=== PATIENT | male | born 1935 | race Caucasian/White ===

== ENCOUNTER 2018-09-03 14:15 | Emergency (ER) | payer MEDICARE, BC ==
[2018-09-03] MEDS ORDERED: Acetaminophen 325 MG Tab PO ONE (14:42)
--- NOTE | 2018-09-03 15:36 | EDM.PDOC ---
ED HPI GENERAL MEDICAL PROBLEM - General Chief Complaint: Upper Extremity Injury/Pain Stated Complaint: LT ARM INJURY Time Seen by Provider: 09/03/18 14:20 Source of Information: Reports: Patient, RN Notes Reviewed - History of Present Illness INITIAL COMMENTS - FREE TEXT/NARRATIVE: 83-year-old male fell after losing his balance against his car suffering injury to his left arm. We the pain did seem to be more in the upper arm area up toward the shoulder but now he states the pain is more left proximal forearm. He did have some mild chest wall discomfort but that is now better. No head neck or back injury. No difficulty breathing. Left Upper Arm Pain Score (Numeric/FACES): 8 - Related Data Allergies Allergy/AdvReac Type Severity Reaction Status Date / Time ciprofloxacin Allergy Cannot Verified 01/05/16 02:48 Remember Home Meds: Home Meds Acetaminophen/HYDROcodone [Dana 325-5 MG] 1 tab PO Q6H PRN #14 tablet 09/03/18 [Rx] Allopurinol [Zyloprim] 300 mg PO DAILY 09/03/18 [History] Aspirin [Halfprin] 81 mg PO DAILY 09/03/18 [History] FA/Lycopene/Lut/MV,Ca,Iron,Min [Centrum] 1 tab PO DAILY 09/03/18 [History] Fluticasone Propionate [Flonase Allergy Relief] 1 spray INH DAILY 09/03/18 [ History] Levothyroxine 125 mcg PO DAILY 09/03/18 [History] Lisinopril 20 mg PO DAILY 09/03/18 [History] Lutein/Minerals/Vit A,C & E [Ocuvite] 1 tab PO DAILY 09/03/18 [History] Umeclidinium Brm/Vilanterol Tr [Anoro Ellipta 62.5-25 MCG] 1 puff INH DAILY [History] metFORMIN [Glucophage XR] 500 mg PO BID 09/03/18 [History] Past Medical History Cardiovascular History: Reports: Hypertension Respiratory History: Reports: Other (See Below) Other Respiratory History: sarcardosis of the lungs Musculoskeletal History: Reports: Gout Endocrine/Metabolic History: Reports: Diabetes, Type II, Hypothyroidism - Past Surgical History GI Surgical History: Reports: Cholecystectomy Social & Family History - Tobacco Use Smoking Status *Q: Former Smoker Years of Tobacco use: 10 Used Tobacco, but Quit: Yes Month/Year Tobacco Last Used: 56 yr - Caffeine Use Caffeine Use: Reports: Coffee, Soda - Recreational Drug Use Recreational Drug Use: No Review of Systems - Review of Systems Review Of Systems: See Below Respiratory: Reports: Pleuritic Chest Pain. Denies: Shortness of Breath Cardiovascular: Reports: Chest Pain (Mild, gone on) GI/Abdominal: Denies: Abdominal Pain, Nausea, Vomiting Musculoskeletal: Reports: Arm Pain Skin: Reports: No Symptoms (Left proximal forearm, left upper arm) Neurological: Denies: Numbness, Tingling, Weakness ED EXAM, GENERAL - Physical Exam Exam: See Below General Appearance: Alert, Moderate Distress Head: Atraumatic Neck: Supple Respiratory/Chest: No Respiratory Distress, Lungs Clear, Normal Breath Sounds Cardiovascular: Regular Rate, Rhythm GI/Abdominal: Soft, Non-Tender Extremities: Arm Pain (Mild tenderness left upper arm, no visible swelling or deformity, left shoulder and left clavicle both nontender, moderate tenderness proximal left forearm, no visible deformity, elbow nontender, wrist and hand nontender without swelling or deformity) Neurological: Alert, Oriented, No Motor/Sensory Deficits Skin Exam: Warm, Dry, Normal Color ED TRAUMA EXTREMITY PROCEDURES - Splinting Left Upper Extremity Splint Site: long arm LUE Pre-Procedure NV Status: Normal Post-Procedure NV Status: Normal Splint Material: Fiberglass Splint Design: Posterior Applied & Form Fitted By: Provider Provider Post-Splint Application NV Check: NV Status Normal Course - Vital Signs Last Recorded V/S: Last Vital Signs Temp 97.6 F 09/03/18 16:10 Pulse 76 09/03/18 16:10 Resp 16 09/03/18 16:10 BP 115/56 L 09/03/18 16:10 Pulse Ox 93 L 09/03/18 16:10 - Orders/Labs/Meds Orders: Active Orders 24 hr Category Date Time Status Forearm 2V Lt [CR] Stat Exams 09/03/18 14:43 Taken Humerus Lt [CR] Stat Exams 09/03/18 14:44 Taken Durable Medical Equipment for Discharge [DME for Oth 09/03/18 15:33 Ordered Discharge] [COMM] Stat Meds: Medications Discontinued Medications Generic Name Dose Route Start Last Admin Trade Name Freq PRN Reason Stop Dose Admin Acetaminophen 975 mg 09/03/18 14:42 09/03/18 15:17 Tylenol PO 09/03/18 14:43 975 mg NOW ONE Administration - Re-Assessments/Exams Free Text/Narrative Re-Assessment/Exam: 09/03/18 18:09 X rays of humerus no fx, forearm fx of proximal radius, nodisplaced. have splinted with orthoglass, that has helped a pain, discharge instr. as documented. Departure - Departure Time of Disposition: 15:33 Disposition: Home, Self-Care 01 Clinical Impression: Fall Qualifiers: Encounter type: initial encounter Qualified Code(s): W19.XXXA - Unspecified fall, initial encounter Fracture, radius, proximal Qualifiers: Encounter type: initial encounter Fracture type: closed Fracture morphology: unspecified fracture morphology Laterality: left Qualified Code(s): S52.102A - Unspecified fracture of upper end of left radius, initial encounter for closed fracture - Discharge Information Prescriptions: Acetaminophen/HYDROcodone [Dana 325-5 MG] 1 tab PO Q6H PRN #14 tablet PRN Reason: Pain Instructions: Radial Fracture Rehab-SportsMed Referrals: Nickolas Panchal MD [Primary Care Provider] - Forms: ED Department Discharge Additional Instructions: Fiberglas splint, keep dry, arm sling as needed for comfort, Tylenol 2-3 times daily as needed for discomfort or hydrocodone if needed for more severe pain. Do not take Tylenol and hydrocodone at the same time, do not drive when taking hydrocodone. Follow-up with Dr. Negron, Orthopedist in about 5-6 days, call [phone] for appointment. - My Orders Last 24 Hours: My Active Orders 09/03/18 14:43 Forearm 2V Lt [CR] Stat 09/03/18 14:44 Humerus Lt [CR] Stat 09/03/18 15:33 Durable Medical Equipment for Discharge [DME for Discharge] [COMM] Stat - Assessment/Plan Last 24 Hours: My Active Orders 09/03/18 14:43 Forearm 2V Lt [CR] Stat 09/03/18 14:44 Humerus Lt [CR] Stat 09/03/18 15:33 Durable Medical Equipment for Discharge [DME for Discharge] [COMM] Stat
[2018-09-03 16:47] VITALS: BP 115/56
--- NOTE | 2018-09-06 10:17 | CR ---
Left humerus: Two views of the left humerus were obtained. Comparison: No prior humerus study. Radial neck fracture is again noted. Mild degenerative spurring is noted within the glenohumeral joint. Osteopenia is present. No additional fracture or other bony abnormality is appreciated. Impression: 1. Radial neck fracture and mild degenerative change as noted above. 2. Nothing acute is seen within the left humerus. Diagnostic code #3
--- NOTE | 2018-09-06 10:17 | CR ---
Left forearm: Two views of the left forearm were obtained. Comparison: No prior forearm study. Fracture is identified within the radial neck. Bony structures are osteoporotic. No additional abnormality is definitely appreciated. Impression: 1. Radial neck fracture. Osteoporosis. Diagnostic code #3
== END 2018-09-03 16:30 | disposition home or self-care (01) ==
LOC: JD.ED 14:15
DX: S52.132A Displaced fracture of neck of left radius, initial encounter for closed fracture (principal); I10 Essential (primary) hypertension; E11.9 Type 2 diabetes mellitus without complications; M10.9 Gout, unspecified; E03.9 Hypothyroidism, unspecified; Z79.84 Long term (current) use of oral hypoglycemic drugs; Z90.49 Acquired absence of other specified parts of digestive tract; Z88.1 Allergy status to other antibiotic agents; Z79.82 Long term (current) use of aspirin; Z79.899 Other long term (current) drug therapy; Z87.891 Personal history of nicotine dependence; W19.XXXA Unspecified fall, initial encounter
CPT/HCPCS: 29105; 73060; 73090; 99283; A9270

== ENCOUNTER 2019-05-21 11:41 | Emergency (ER) | payer MEDICARE, BC ==
[2019-05-21] MEDS ORDERED: Acetaminophen/HYDROcodone 325-5 MG Tab PO STA ×2 (12:30→14:53)
--- NOTE | 2019-05-21 12:38 | EDM.PDOC ---
ED HPI GENERAL MEDICAL PROBLEM - General Chief Complaint: Upper Extremity Injury/Pain Stated Complaint: [facility] Time Seen by Provider: 05/21/19 11:57 Source of Information: Reports: Patient, Family (, daughter) History Limitations: Reports: No Limitations - History of Present Illness INITIAL COMMENTS - FREE TEXT/NARRATIVE: Mr. Tom is a very pleasant 83-year-old man who tells me that he tripped over a vacuum tuckpointer cleaner caulker cord around 9:30 to 10:00 this morning, falling. He struck his forehead on the carpet when he landed, and injured his upper right arm. He is also complaining of pain across his lower ribs, bilaterally. He is otherwise uninjured. His states that he was not knocked unconscious when he fell, and that his current mental status is his normal (he is somewhat forgetful and not the best historian). The patient was given Dilaudid 0.5 mg en route to the ED. The patient's PCP is Dr. Jesus Panchal. He received an influenza vaccine this season. Right Shoulder Pain Score (Numeric/FACES): 6 - Related Data Allergies Allergy/AdvReac Type Severity Reaction Status Date / Time ciprofloxacin Allergy Cannot Verified 05/21/19 11:48 Remember Home Meds: Home Meds Acetaminophen/HYDROcodone [Opolis 325-5 MG] 1 tab PO Q6H PRN #14 tablet 09/03/18 [Rx] Levothyroxine 125 mcg PO DAILY 09/03/18 [History] Lisinopril 10 mg PO DAILY 09/03/18 [History] Umeclidinium Brm/Vilanterol Tr [Anoro Ellipta 62.5-25 MCG] 1 puff INH DAILY [History] allopurinoL [Zyloprim] 300 mg PO DAILY 09/03/18 [History] metFORMIN [Glucophage XR] 500 mg PO BID 09/03/18 [History] Acetaminophen/HYDROcodone [Opolis 325-5 MG] 1 - 2 tab PO Q6H PRN #30 tablet 05/21 [Rx] Furosemide [Lasix] 40 mg PO DAILY 05/21/19 [History] atorvaSTATin [Lipitor] 10 mg PO BEDTIME 05/21/19 [History] Past Medical History Cardiovascular History: Reports: Hypertension Respiratory History: Reports: Other (See Below) Other Respiratory History: sarcardosis of the lungs Musculoskeletal History: Reports: Gout Endocrine/Metabolic History: Reports: Diabetes, Type II, Hypothyroidism - Past Surgical History GI Surgical History: Reports: Cholecystectomy Social & Family History - Tobacco Use Smoking Status *Q: Never Smoker - Caffeine Use Caffeine Use: Reports: Coffee, Soda - Recreational Drug Use Drug Use in Last 12 Months: No ED ROS GENERAL - Review of Systems Review Of Systems: Comprehensive ROS is negative, except as noted in HPI. ED EXAM, GENERAL - Physical Exam Exam: See Below Exam Limited By: No Limitations General Appearance: Alert, WD/WN, No Apparent Distress Eye Exam: Bilateral Eye: EOMI, Normal Inspection (s/p cataract surgery), PERRL Ears: Normal External Exam, Normal Canal, Normal TMs, Hearing Loss Nose: Normal Inspection, Normal Mucosa, No Blood Throat/Mouth: Normal Inspection, Normal Lips, Normal Teeth, Normal Gums, Normal Oropharynx, Normal Voice, No Airway Compromise Head: Normocephalic, Other (Approx 4 cm diameter area of swelling with a minor abrasion and no visible ecchymosis, on the forehead, just right of midline) Neck: Normal Inspection, Supple, Non-Tender, Full Range of Motion Respiratory/Chest: No Respiratory Distress, Lungs Clear, Normal Breath Sounds, No Accessory Muscle Use, Other (Tenderness without crepitus or rub to the bilateral lower ribs, left > right) Cardiovascular: Normal Peripheral Pulses, Regular Rate, Rhythm, No Gallop, No JVD, No Murmur, No Rub Peripheral Pulses: 4+: Radial (L), Radial (R) GI/Abdominal: Normal Bowel Sounds, Soft, Non-Tender, No Organomegaly, No Distention, No Abnormal Bruit, No Mass (Male) Exam: Deferred Rectal (Males) Exam: Deferred Back Exam: Normal Inspection, Full Range of Motion, NT Extremities: Normal Capillary Refill, Other (Reproducible tenderness to palpation of the proximal right humerus. Pain is induced in this area with traction of the humerus and attempt at external rotation of the arm. No pain with compression of the humerus. Neurovascular status of the right upper extremity is intact.) Neurological: Alert, Oriented, CN II-XII Intact, Normal Cognition (somewhat forgetful = his baseline, according to his ), No Motor/Sensory Deficits Psychiatric: Normal Affect Skin Exam: Warm, Dry, Intact, Normal Color, No Rash Course - Vital Signs Last Recorded V/S: Last Vital Signs Temp 36.9 C 05/21/19 11:46 Pulse 75 05/21/19 11:46 Resp 16 05/21/19 11:46 BP 121/73 05/21/19 11:46 Pulse Ox 93 L 05/21/19 11:46 - Orders/Labs/Meds Orders: Active Orders 24 hr Category Date Time Status Chest 1V Frontal [CR] Stat Exams 05/21/19 12:30 Taken Shoulder Comp Rt [CR] Stat Exams 05/21/19 12:31 Taken Meds: Medications Discontinued Medications Generic Name Dose Route Start Last Admin Trade Name Wuq PRN Reason Stop Dose Admin Hydrocodone Bitart/Acetaminophen 1 tab 05/21/19 12:30 05/21/19 12:34 Opolis 325-5 Mg PO 05/21/19 12:31 1 tab ONETIME STA Administration Hydrocodone Bitart/Acetaminophen 1 tab 05/21/19 14:53 05/21/19 15:02 Opolis 325-5 Mg PO 05/21/19 14:54 1 tab ONETIME STA Administration Hydromorphone HCl 0.5 mg 05/21/19 16:07 05/21/19 16:11 Dilaudid IVPUSH 05/21/19 16:08 0.5 mg ONETIME ONE Administration - Re-Assessments/Exams Free Text/Narrative Re-Assessment/Exam: 05/21/19 12:32 I am most concerned that the patient has a proximal right humerus fracture. X- rays have been ordered. I am less concerned about a rib fracture, however, I ordered a chest x-ray to make sure that there is no hemothorax or pneumothorax. The patient did not lose consciousness when he fell, and his GCS remains at 15 with no amnesia. There is no suggestion of a depressed skull fracture or basal skull fracture. No post-injury seizure, no vomiting, and the patient's neurologic exam is normal here in the ED. He is not on an anticoagulant, therefore, in accordance with NICE criterion, a CT of the head is not indicated at this time. This was explained to the patient's and daughter, who appear to understand well. 05/21/19 13:24 3-view radiographs of the right shoulder appears to demonstrate a comminuted, angulated, but minimally displaced proximal humerus fracture at the surgical neck. The head of the humerus appears to be anteriorly subluxed, but not dislocated. Formal read per the Radiologist pending. Because of the humerus fracture, the radiology teacher obtained only an AP view of the chest, not a 2-view, as the patient is unable to raise his right arm. Portable chest radiograph reviewed. The cardiac silhouette is within normal limits. No pulmonary vascular congestion. No pleural effusions. No focal infiltrate. No pneumothorax. An air-filled structure is noted over the right hemidiaphragm, consistent with eventration of a loop of bowel. Review of prior chest radiograph on 11/30/2018 finds the same. The proximal humerus fracture is again demonstrated. Formal read per the Radiologist pending. 05/21/19 13:32 X-ray results discussed with the patient, his , and daughter. I would like to discuss the case with an an Orthopedic Surgeon, however, Dr. Negron is not available today. The patient had his aneurysm repair performed at [facility], therefore I will call them. Humerus x-rays pushed to [facility] at 13:31. 05/21/19 13:42 Case discussed with [facility] One Call at 13:34. Notified that the Orthopedic Surgeon, Dr. Ceballos, is currently in the operating room. They will call me back once he is available. 05/21/19 14:[address] Ceballos at 14:39. He recommended that we obtain an axillary or Velpeau view of the shoulder to rule out a dislocation. Presuming the shoulder is not dislocated, the patient's arm can be put in a sling, and he can follow- up as an outpatient. If the views are inconclusive, a CT scan of the shoulder can be performed. The above was discussed with the patient, his , and daughter. The patient requested additional pain medication. 05/21/19 16:16 X-ray of the right shoulder is read by Blair as "Comminuted impacted proximal humeral fracture". The body of the report reads "There is impacted comminuted fracture through the humeral head and greater tuberosity. No gross dislocation. " As above, the patient will be fitted with an arm sling and discharged home with a prescription for Opolis. He can follow-up with Ortho as an outpatient. Departure - Departure Time of Disposition: 16:18 Disposition: Home, Self-Care 01 Condition: Good Clinical Impression: Closed fracture of right proximal humerus, Forehead contusion, Fall at home - Discharge Information *PRESCRIPTION DRUG MONITORING PROGRAM REVIEWED*: Not Applicable *COPY OF PRESCRIPTION DRUG MONITORING REPORT IN PATIENT ANGIE: Not Applicable Prescriptions: Acetaminophen/HYDROcodone [Opolis 325-5 MG] 1 - 2 tab PO Q6H PRN #30 tablet PRN Reason: Pain (Severe 7-10) Referrals: Nickolas Panchal MD [Primary Care Provider] - Rubio Negron MD [Physician] - Forms: ED Department Discharge Additional Instructions: You were seen in the emergency room after tripping and falling at home, striking your forehead and injuring your right arm and lower ribs. Workup in the ER included a chest x-ray and x-rays of your right arm. Your chest x-ray was unremarkable - you have not broken any ribs - however, the x-ray of your right arm showed that you have a proximal right humerus fracture. The case was discussed with an Orthopedic Surgeon in [place]. Your right arm has been placed into an arm sling. Apply it every morning, and remove it at bedtime. Take [id number] Aleve, 2 tablets every 12 hours, with food, around-the- clock. You have been given a prescription for the opioid pain reliever Opolis. You may take 1-2 tablets of Opolis up to every 6 hours, as needed for pain not relieved by Aleve. If you take Opolis, do not drive for 12 hours afterwards. Opolis may cause constipation, so consider taking a stool softener. Follow-up with the Orthopedic Surgeon Dr. Rubio Negron at the next available appointment. If any other problems, please do not hesitate to return to the ER. Sepsis Event Note - Evaluation Sepsis Screening Result: No Definite Risk - Focused Exam Vital Signs: Vital Signs Temp Pulse Resp BP Pulse Ox 05/21/19 11:46 36.9 C 75 16 121/73 93 L Date Exam was Performed: 05/21/19 Time Exam was Performed: 16:16 - My Orders Last 24 Hours: My Active Orders 05/21/19 12:30 Chest 1V Frontal [CR] Stat 05/21/19 12:31 Shoulder Comp Rt [CR] Stat - Assessment/Plan Last 24 Hours: My Active Orders 05/21/19 12:30 Chest 1V Frontal [CR] Stat 05/21/19 12:31 Shoulder Comp Rt [CR] Stat
[2019-05-21] MEDS ORDERED: HYDROmorphone 0.5 MG/0.5 ML Syringe IVPUSH ONE (16:07)
--- NOTE | 2019-05-21 16:38 | CR ---
Chest: Portable view of the chest was obtained. Comparison: Prior chest x-ray of 11/30/18. Findings: Partial eventration of the right hemidiaphragm is noted which is stable. Heart size is seen is is felt to be slightly enlarged. Tortuous thoracic aorta is seen. Widening of the superior mediastinum is seen. These findings are stable from previous exam. Lungs show no acute parenchymal change. Impacted fracture seen within the proximal humerus. Mild angulation noted of the humerus. No other acute bony abnormality is appreciated. Impression: 1. Proximal humeral fracture within the right shoulder. 2. Other findings within the chest which are believed to be stable. 3. No other acute finding is appreciated. Diagnostic code #3 This report was dictated in [place] Standard Time
--- NOTE | 2019-05-21 16:38 | CR ---
Right shoulder: 2 views the right shoulder were obtained. Comminuted proximal humeral fracture is seen. Greater tuberosity fracture is displaced by 1.4 cm. Surgical neck fracture is also seen showing slight impaction. No additional abnormality is seen other than mild osteopenia. Impression: 1. Proximal humeral fracture as described above. Diagnostic code #3 This report was dictated in [place] Standard Time I agree with preliminary report from [facility], finalized on 05/21/19, 4:18 PM Central Time
[2019-05-21 17:39] VITALS: BP 122/69; PULSE 89
== END 2019-05-21 16:55 | disposition home or self-care (01) ==
LOC: JD.ED 11:41
DX: S42.201A Unspecified fracture of upper end of right humerus, initial encounter for closed fracture (principal); S00.83XA Contusion of other part of head, initial encounter; E11.9 Type 2 diabetes mellitus without complications; E03.9 Hypothyroidism, unspecified; M10.9 Gout, unspecified; Z79.84 Long term (current) use of oral hypoglycemic drugs; Z88.1 Allergy status to other antibiotic agents; Z79.899 Other long term (current) drug therapy; W01.10XA Fall on same level from slipping, tripping and stumbling with subsequent striking against unspecified object, initial encounter; Y92.009 Unspecified place in unspecified non-institutional (private) residence as the place of occurrence of the external cause
CPT/HCPCS: 71045; 73030; 96374; 99284; A9270; J1170

== ENCOUNTER 2020-03-27 11:14 | Emergency (ER) | payer MEDICARE, BC ==
[2020-03-27 11:38] VITALS: BP 138/76; PULSE 75
--- NOTE | 2020-03-27 11:56 | EDM.PDOC ---
ED HPI GENERAL MEDICAL PROBLEM - General Chief Complaint: Respiratory Problem Stated Complaint: LOW O2 Time Seen by Provider: 03/27/20 11:28 Source of Information: Reports: Patient, Family (daughter/), RN Notes Reviewed History Limitations: Reports: No Limitations - History of Present Illness INITIAL COMMENTS - FREE TEXT/NARRATIVE: The patient is an 84-year-old male who presents to the ED for his low oxygen saturations. He is being cared for by Dr. Panchal. Patient did have COVID-19 roughly 6 weeks ago, today the daughter was visiting and checked her father's oxygen levels, and was found to be low, in the mid 80s, they called Dr. Panchal and he told them to bring the patient to the ER for evaluation. The patient is denying any cough, fever, shortness of breath, nausea/vomiting/diarrhea. O2 sats at time of triage were 88 to 89% on room air, his hands are fairly cold, but we are getting a good plethysmography. Pulse is 75 bpm, temperature is 97.5 F, patient has no respiratory distress and has respiratory rate of 20 breaths/min, blood pressure is 138/76. It was reported from the daughter and the , that they thought the patient was also a little bit more confused than he normally is. Review of his medications reveal that he was on donepezil at one point, and COVID-19 is known to cause brain fog. The patient did answer questions appropriate for me, and states that he does not feel any more confused than he normally does. - Related Data Allergies Allergy/AdvReac Type Severity Reaction Status Date / Time ciprofloxacin Allergy Severe Cannot Verified 03/27/20 11:51 Remember Home Meds: Home Meds Levothyroxine 125 mcg PO DAILY 09/03/18 [History] Umeclidinium Brm/Vilanterol Tr [Anoro Ellipta 62.5-25 MCG] 1 puff INH DAILY 09/03/18 [History] allopurinoL [Zyloprim] 300 mg PO DAILY 09/03/18 [History] metFORMIN [Glucophage XR] 500 mg PO BID 09/03/18 [History] Furosemide [Lasix] 40 mg PO DAILY 05/21/19 [History] atorvaSTATin [Lipitor] 10 mg PO BEDTIME 05/21/19 [History] Past Medical History Cardiovascular History: Reports: Hypertension Respiratory History: Reports: Other (See Below) Other Respiratory History: sarcoidosis of the lungs Musculoskeletal History: Reports: Gout Endocrine/Metabolic History: Reports: Diabetes, Type II, Hypothyroidism - Infectious Disease History Infectious Disease History: Reports: Novel Coronavirus (beginning-mid of 02/2020) - Past Surgical History GI Surgical History: Reports: Cholecystectomy Social & Family History - Caffeine Use Caffeine Use: Reports: Coffee, Soda ED ROS GENERAL - Review of Systems Review Of Systems: Comprehensive ROS is negative, except as noted in HPI. ED EXAM, GENERAL - Physical Exam Exam: See Below Exam Limited By: No Limitations General Appearance: Alert, WD/WN, No Apparent Distress Respiratory/Chest: No Respiratory Distress, Lungs Clear, Normal Breath Sounds, No Accessory Muscle Use, Chest Non-Tender Cardiovascular: Normal Peripheral Pulses, Regular Rate, Rhythm, No Edema Peripheral Pulses: 2+: Radial (L), Radial (R) Extremities: Normal Inspection, Normal Range of Motion, Slow Capillary Refill (slightly prolonged, patient's hands are somewhat cold to the touch) Neurological: Alert, Oriented, Normal Cognition, No Motor/Sensory Deficits Psychiatric: Normal Affect, Normal Mood Skin Exam: Warm, Dry, Intact, Normal Color, No Rash Course - Vital Signs Last Recorded V/S: Last Vital Signs Temp 97.5 F 03/27/20 11:30 Pulse 75 03/27/20 11:30 Resp 20 03/27/20 11:30 BP 138/76 03/27/20 11:30 Pulse Ox 89 L 03/27/20 11:30 - Orders/Labs/Meds Labs: Laboratory Tests 03/27/20 03/27/20 03/27/20 Range/Units 11:40 12:07 12:07 WBC 4.28 (4.23-9.07) K/mm3 RBC 4.29 L (4.63-6.08) M/mm3 Hgb 13.6 L (13.7-17.5) gm/dl Hct 43.6 (40.1-51.0) % MCV 101.6 H D (79.0-92.2) fl MCH 31.7 (25.7-32.2) pg MCHC 31.2 L (32.2-35.5) g/dl RDW Std Deviation 52.0 H (35.1-43.9) fL Plt Count 161 L (163-337) K/mm3 MPV 8.5 L (9.4-12.3) fl Neut % (Auto) 62.1 (34.0-67.9) % Lymph % (Auto) 22.0 (21.8-53.1) % [place] % (Auto) 12.4 H (5.3-12.2) % Eos % (Auto) 2.8 (0.8-7.0) Baso % (Auto) 0.7 (0.1-1.2) % Neut # (Auto) 2.66 (1.78-5.38) K/mm3 Lymph # (Auto) 0.94 L (1.32-3.57) K/mm3 [place] # (Auto) 0.53 (0.30-0.82) K/mm3 Eos # (Auto) 0.12 (0.04-0.54) K/mm3 Baso # (Auto) 0.03 (0.01-0.08) K/mm3 Puncture Site Lt radial ABG pH 7.41 (7.35-7.45) ABG pCO2 50.9 H (35.0-45.0) mmHg ABG pO2 64.0 L (80.0-100.0) mmHg ABG HCO3 31.7 H (22.0-26.0) meq/L ABG O2 Saturation 90.9 L (96.0-97.0) % ABG Base Excess 6.2 H (-2-2.0) Ever Test Positive O2 Delivery Device Room air FiO2 0.00 L (21.00-100.00) % Sodium 139 (136-145) mEq/L Potassium 4.4 (3.5-5.1) mEq/L Chloride 102 (98-107) mEq/L Carbon Dioxide 34 H (21-32) mEq/L Anion Gap 7.4 (5-15) BUN 15 (7-18) mg/dL Creatinine 0.8 (0.7-1.3) mg/dL Est Cr Clr Drug Dosing TNP Estimated GFR (MDRD) > 60 (>60) mL/min BUN/Creatinine Ratio 18.8 H (14-18) Glucose 103 (83-115) mg/dL Calcium 9.2 (8.5-10.1) mg/dL Magnesium 1.7 L (1.8-2.4) mg/dl Total Bilirubin 1.1 H (0.2-1.0) mg/dL AST 12 L (15-37) U/L ALT 13 L (16-63) U/L Alkaline Phosphatase 65 (46-116) U/L C-Reactive Protein (<1.0) mg/dL Total Protein 6.8 (6.4-8.2) g/dl Albumin 3.1 L (3.4-5.0) g/dl Globulin 3.7 gm/dL Albumin/Globulin Ratio 0.8 L (1-2) 03/27/20 Range/Units 12:07 WBC (4.23-9.07) K/mm3 RBC (4.63-6.08) M/mm3 Hgb (13.7-17.5) gm/dl Hct (40.1-51.0) % MCV (79.0-92.2) fl MCH (25.7-32.2) pg MCHC (32.2-35.5) g/dl RDW Std Deviation (35.1-43.9) fL Plt Count (163-337) K/mm3 MPV (9.4-12.3) fl Neut % (Auto) (34.0-67.9) % Lymph % (Auto) (21.8-53.1) % [place] % (Auto) (5.3-12.2) % Eos % (Auto) (0.8-7.0) Baso % (Auto) (0.1-1.2) % Neut # (Auto) (1.78-5.38) K/mm3 Lymph # (Auto) (1.32-3.57) K/mm3 [place] # (Auto) (0.30-0.82) K/mm3 Eos # (Auto) (0.04-0.54) K/mm3 Baso # (Auto) (0.01-0.08) K/mm3 Puncture Site ABG pH (7.35-7.45) ABG pCO2 (35.0-45.0) mmHg ABG pO2 (80.0-100.0) mmHg ABG HCO3 (22.0-26.0) meq/L ABG O2 Saturation (96.0-97.0) % ABG Base Excess (-2-2.0) Ever Test O2 Delivery Device FiO2 (21.00-100.00) % Sodium (136-145) mEq/L Potassium (3.5-5.1) mEq/L Chloride (98-107) mEq/L Carbon Dioxide (21-32) mEq/L Anion Gap (5-15) BUN (7-18) mg/dL Creatinine (0.7-1.3) mg/dL Est Cr Clr Drug Dosing Estimated GFR (MDRD) (>60) mL/min BUN/Creatinine Ratio (14-18) Glucose (83-115) mg/dL Calcium (8.5-10.1) mg/dL Magnesium (1.8-2.4) mg/dl Total Bilirubin (0.2-1.0) mg/dL AST (15-37) U/L ALT (16-63) U/L Alkaline Phosphatase (46-116) U/L C-Reactive Protein <0.2 (<1.0) mg/dL Total Protein (6.4-8.2) g/dl Albumin (3.4-5.0) g/dl Globulin gm/dL Albumin/Globulin Ratio (1-2) - Re-Assessments/Exams Free Text/Narrative Re-Assessment/Exam: 03/27/20 11:59 Patient presents to the ER for his hypoxia. We will get basic labs, 2 view chest x-ray, and a blood gas for further evaluation. Patient's hands were slightly cold at the time of exam, which could attribute for some of the findings. He has an obviously no respiratory distress, O2 sats were as low as 88% on room air. 03/27/20 12:48 The patient's blood gas did demonstrate a PO2 of 64 on room air. Chest x-ray demonstrates mild area of increased density at the left base and right upper lung findings may represent minimal areas of pneumonia. Findings could be due to COVID etiology. Again patient was COVID + 6 weeks ago, so this could be a residual pneumonia in nature. Patient's white count is not elevated to suggest ongoing bacterial infection. Other labs are still pending at this time. 03/27/20 13:10 The patient's metabolic panel is essentially normal, magnesium mildly low at 1.7. CRP is undetectably low. Repeat check of the patient's oxygen saturations on room air do demonstrate a level of 86% on room air. O2 at 2 L was applied, and the patient did improve to 94-95%. I did call Dr. Panchal, and he will watch for the patient in clinic for follow-up. Departure - Departure Time of Disposition: 13:18 Disposition: Home, Self-Care 01 Condition: Good Clinical Impression: Hypoxia, Sarcoidosis - Discharge Information *PRESCRIPTION DRUG MONITORING PROGRAM REVIEWED*: No *COPY OF PRESCRIPTION DRUG MONITORING REPORT IN PATIENT ANGIE: No Instructions: Hypoxemia Referrals: Nickolas Panchal MD [Primary Care Provider] - Forms: ED Department Discharge Additional Instructions: You were evaluated in the ER today for your low oxygen levels. Laboratory evaluation was done, and was fairly unremarkable however your oxygen levels were still low while being in the ER, and you will need supplemental oxygen for a period of time. You have been set up with home oxygen through [facility] services, at 2 L via nasal cannula, continuously until you can be reevaluated and you are no longer deemed to be needing oxygen. Please follow-up with your regular provider, Dr. Panchal, sometime within the next week for reevaluation and to make sure your symptoms are getting better as expected. Please return to the ER at any time if symptoms change or worsen. Sepsis Event Note (ED) - Evaluation Sepsis Screening Result: No Definite Risk - Focused Exam Vital Signs: Vital Signs Temp Pulse Resp BP Pulse Ox 03/27/20 11:30 97.5 F 75 20 138/76 89 L
--- NOTE | 2020-03-27 12:34 | CR ---
Chest: 2 views of the chest were obtained. Comparison: Prior chest x-ray of 05/21/19 and 11/30/18. Air-filled bowel is seen between the diaphragm and liver which is a normal variant. Slight parenchymal density is noted within the left base is an interval change. Minimal density within the right upper lung is seen. Heart size is normal. Tortuous thoracic aorta is seen. Bony structures are osteopenic. Nothing acute is otherwise seen. Impression: 1. Mild area of increased density at the left base and right upper lung. Findings may represent minimal areas of pneumonia. Findings could be due to COVID etiology. 2. Other findings as noted above which are felt to be incidental. Diagnostic code #3
== END 2020-03-27 14:00 | disposition home or self-care (01) ==
LOC: JD.ED 11:14
DX: R09.02 Hypoxemia (principal); D86.9 Sarcoidosis, unspecified; M10.9 Gout, unspecified; E11.9 Type 2 diabetes mellitus without complications; I10 Essential (primary) hypertension; Z79.84 Long term (current) use of oral hypoglycemic drugs; Z79.899 Other long term (current) drug therapy; Z88.1 Allergy status to other antibiotic agents
CPT/HCPCS: 36415; 36600; 71046; 71046-26; 80053; 82803; 83735; 85025; 86140; 99284-25

== ENCOUNTER 2020-07-16 16:34 | Emergency (ER) | payer MEDICARE, BC ==
[2020-07-16 17:07] VITALS: BP 131/75; PULSE 70
--- NOTE | 2020-07-16 17:27 | EDM.PDOC ---
ED HPI GENERAL MEDICAL PROBLEM - General Chief Complaint: Abdominal Pain Stated Complaint: HERNIA COMPLAINT Time Seen by Provider: 07/16/20 17:10 Source of Information: Reports: Patient History Limitations: Reports: No Limitations - History of Present Illness INITIAL COMMENTS - FREE TEXT/NARRATIVE: This 84-year-old gentleman was seen through the emergency department at the requ est of his primary care provider Dr. Panchal. Patient has been having a bulge and pain in his left lower groin since getting up this morning. He notices it particularly after getting out of the shower. He states it was as large as half the size of his fist which is quite large. He states it caused a burning discomfort which brought him to the doctor. He is usually seen through the [facility] with primary care provider Shanda Caldera. Patient has had no previous hernia repairs. When he arrived in the emergency room he was having no further pain. He also could no longer feel a bulge in his left groin. Patient states that he is incontinent of urine and wears pads to try and protect his underwear. He is known to have prostate problems. Denies any recent changes to medications. He had COVID-19 illness with his in late January early February of last year. He is still on oxygen at 1 L/min at all times. History of COPD. No problems with his heart. He apparently has had lung biopsies on granulomas but no history of lung cancer. He states he stopped smoking at age 31. He has had a previous cholecystectomy. Uncertain was whether or not the hernia needed to be reduced in the ED or if there was incarceration he would have to go to surgery. CT scan was apparently done at the [facility] which did really reveal a of bowel within the inguinal hernia today. Onset: Other (Patient has noticed a bulge in the left groin coming and going for the last 6 to 8 months.) Duration: Chronic, Getting Worse Location: Reports: Abdomen (Which comes and goes due to) Quality: Reports: Ache, Burning ( an left inguinal hernia.) Severity: Moderate (Today the pain was as bad as a 6 out of 10. When he was seen in the ED he was pain-free.) Improves with: Reports: Other (Proved after he laid down on the gurney for period of time.) Worsens with: Reports: None Context: Denies: Activity, Exercise, Lifting, Sick Contact, Trauma, Other Associated Symptoms: Reports: Cough, Malaise, Shortness of Breath, Weakness (Uses a walker to help him walk.). 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: Reports: Other (see below) - Related Data Allergies Allergy/AdvReac Type Severity Reaction Status Date / Time ciprofloxacin Allergy Severe Cannot Verified 03/27/20 11:51 Remember Home Meds: Home Meds Levothyroxine 125 mcg PO DAILY 09/03/18 [History] allopurinoL [Zyloprim] 300 mg PO DAILY 09/03/18 [History] metFORMIN [Glucophage XR] 500 mg PO BID 09/03/18 [History] Furosemide [Lasix] 20 mg PO DAILY 05/21/19 [History] atorvaSTATin [Lipitor] 10 mg PO BEDTIME 05/21/19 [History] Tiotropium BR/Olodaterol HCL [Stiolto Respimat] 2 puff INH DAILY 07/16/20 [History] Past Medical History HEENT History: Reports: Hard of Hearing, Other (See Below) Cardiovascular History: Reports: High Cholesterol, Hypertension, SOB on Exertion Respiratory History: Reports: COPD, Other (See Below) Other Respiratory History: sarcoidosis of the lungs Musculoskeletal History: Reports: Back Pain, Chronic, Gout, Osteoarthritis, Osteoporosis, Other (See Below) (Tritus knees hips low back neck and shoulders.) Endocrine/Metabolic History: Reports: Diabetes, Type II (Using Metformin for diabetes control.), Hypothyroidism - Infectious Disease History Infectious Disease History: Reports: Novel Coronavirus - Past Surgical History Respiratory Surgical History: Reports: Lung Biopsies GI Surgical History: Reports: Cholecystectomy Social & Family History - Family History Family Medical History: No Pertinent Family History - Tobacco Use Tobacco Use Status *Q: Former Tobacco User Used Tobacco, but Quit: Yes Month/Year Tobacco Last Used: 50 yrs - Caffeine Use Caffeine Use: Reports: Coffee - Recreational Drug Use Recreational Drug Use: No - Living Situation & Occupation Living situation: Reports: 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 Denies: Fever, Chills HEENT: Reports: Glasses, Other (Has purulent debris accumulated in his left eye intermittently due to clogged tear ducts) Respiratory: Reports: Shortness of Breath, Wheezing, Cough, Sputum, Other (Has a history of sarcoidosis with lung biopsies in the past. He is oxygen dependent 1 L/min.). Denies: Pleuritic Chest Pain Cardiovascular: Reports: Dyspnea on Exertion. Denies: Chest Pain, Blood Pressure Problem, Claudication, Edema, Lightheadedness, Orthopnea, Palpitations Endocrine: Reports: Fatigue (Likely) GI/Abdominal: Reports: Abdominal Pain (Up to inguinal hernia pain today.), Constipation (Occasional.) : Reports: Frequency, Incontinence (Does lose some urine ie. drips at times.), Urgency Skin: Reports: No Symptoms Neurological: Reports: No Symptoms, Difficulty Walking, Weakness (Uses a walker due to weakness in his legs.). Denies: Confusion, Dizziness, Headache, Numbness, Syncope, Tingling Psychiatric: Reports: No Symptoms Hematologic/Lymphatic: Reports: No Symptoms Immunologic: Reports: No Symptoms ED EXAM, GI/ABD - Physical Exam Exam: See Below Exam Limited By: No Limitations (He is mildly hard of hearing.) General Appearance: Alert, WD/WN, No Apparent Distress, Other (No active infection is present. He does wear eyeglasses. Wears eyeglasses) Eyes: Right: Pale Conjunctiva (Slightly pale conjunctiva. Left eye is) Ears: Hearing Loss (Has hearing aids but they do not work very well.), Other Nose: Normal Inspection Throat/Mouth: Normal Inspection, Normal Lips, Normal Oropharynx Head: Atraumatic, Normocephalic Neck: Normal Inspection, Non-Tender, Limited Range of Motion, Tender Lateral. No: Full Range of Motion, Carotid Bruit (Crepitus on lateral rotation), Lymphadenopathy (L), Lymphadenopathy (R) Respiratory/Chest: Respiratory Distress, Decreased Breath Sounds (Mild tachypnea at rest. He is on oxygen at 1 L/min by nasal cannula. Sounds are diminished to both posterior lung tomlin.), Crackles (Fine crackles both bases compared with interstitial lung disease or pulmonary fibrosis.). No: Lungs Clear, Normal Breath Sounds Cardiovascular: Regular Rate, Rhythm, No Gallop, No JVD (This edema at the ankles.), No Murmur, No Rub, Other. No: Normal Peripheral Pulses GI/Abdominal Exam: Normal Bowel Sounds, Soft, Non-Tender, No Organomegaly, No Abnormal Bruit, No Mass, Pelvis Stable, Other (On invagination of his scrotum the left inguinal hernia appears to have completely reduced itself. He does have a positive cough reflex bilaterally.) (Male) Exam: Circumcised, Other Back Exam: Decreased Range of Motion, Vertebral Tenderness (Along the vertebral spine bilaterally.). No: CVA Tenderness (L), CVA Tenderness (R) Extremities: Non-Tender, Pedal Edema (Patient pedal edema at the ankles.), Other (Gnosis of osteoarthritic changes both knees and limited rotation in) Neurological: Alert, Oriented, CN II-XII Intact, Normal Cognition, Normal Gait (Walks with the aid of a walker.) Psychiatric: Normal Affect, Normal Mood Skin Exam: Warm, Dry, Intact, Normal Color, No Rash Course - Vital Signs Last Recorded V/S: Last Vital Signs Temp 36.8 C 07/16/20 17:03 Pulse 70 07/16/20 17:03 Resp 20 07/16/20 17:03 BP 131/75 07/16/20 17:03 Pulse Ox 96 07/16/20 17:03 - Radiology Interpretation Free Text/Narrative:: 84-year-old male presents to the ED for evaluation of pain in his left inguinal area. 3 with an intermittent left inguinal hernia for several months. This morning after showering it became very painful with a burning discomfort suggesting an treatment of the ilioinguinal nerve. He was to see Dr. House twice today and did have a CT scan of the abdomen and pelvis which identified a loop of small bowel within the hernia without incarceration. He was sent over to the ED to help reduce the hernia. Hyper once he reached the emergency room and lay down on the gurney for period of time the hernia reduced itself. I invaginated the scrotum and he does have a cough positive cough reflex bilaterally indicating bilateral hernias. Advised that at some point time he needs this repaired. He is keen to have it done as soon as possible. He will depend a bit on his age and his lung disease as to where this needs to be performed. I feel he is probably too high risk for it to be done here in [place]. Patient was seen in consultation with his and his son who are in good understanding of the situation. They can go and purchase a hernia belt at [employer] today which should hopefully keep it from reoccurring until surgery can be performed. Departure - Departure Time of Disposition: 17:25 Disposition: Home, Self-Care 01 Condition: Fair Clinical Impression: Left inguinal hernia - Discharge Information *PRESCRIPTION DRUG MONITORING PROGRAM REVIEWED*: Not Applicable *COPY OF PRESCRIPTION DRUG MONITORING REPORT IN PATIENT ANGIE: Not Applicable Instructions: Inguinal Hernia, Adult, [id number] Referrals: Nickolas Panchal MD [Primary Care Provider] - Forms: ED Department Discharge Additional Instructions: Evaluation in the emergency room today at the request of Dr. Panchal in regards to a left inguinal hernia that has been plaguing you since early this morning. As you indicated it was bulging the size of a small fist this morning. It also caused quite a bit of burning discomfort and pain. Upon arrival in the emergency room the hernia has reduced itself back into the abdomen. CT scan apparently revealed that there was a loop of bowel in the hernia indicating that is been present for a lengthy period of time. It is therefore time to get it surgically repaired so that it does not get bowel stuck within it which then becomes an emergency surgery which is much more difficult to manage as there can be bowel or got within the hernia sac. As we discussed at present there is no emergency. We will make arrangements for you to see a surgeon to have this repaired. You will need a preoperative evaluation by your primary care provider Shanda Caldera or Madhavi Zazueta at the [facility]. Somebody will call you tomorrow to arrange a consultation with a surgeon to have this surgically repaired. Is how bad your lung disease is as to whether or not the surgery can be done here in [place] or you would have to travel to [place] to have it done. Sepsis Event Note (ED) - Evaluation Sepsis Screening Result: No Definite Risk - Focused Exam Vital Signs: Vital Signs Temp Pulse Resp BP Pulse Ox 07/16/20 17:03 36.8 C 70 20 131/75 96
== END 2020-07-16 17:30 | disposition home or self-care (01) ==
LOC: JD.ED 16:34
DX: K40.90 Unilateral inguinal hernia, without obstruction or gangrene, not specified as recurrent (principal); J44.9 Chronic obstructive pulmonary disease, unspecified; E78.00 Pure hypercholesterolemia, unspecified; I10 Essential (primary) hypertension; E11.9 Type 2 diabetes mellitus without complications; M10.9 Gout, unspecified; Z99.81 Dependence on supplemental oxygen; Z88.1 Allergy status to other antibiotic agents; Z79.84 Long term (current) use of oral hypoglycemic drugs; Z79.899 Other long term (current) drug therapy; Z87.891 Personal history of nicotine dependence
CPT/HCPCS: 74176; 74176-26; 99283; 99284